=== PATIENT | male | born 2000 ===

== ENCOUNTER 2022-11-11 07:20 | Emergency (ER) | payer BC ==
[2022-11-11] MEDS ORDERED: fentaNYL 50 MCG/ML SDV ONE (07:30)
[2022-11-11] MEDS ORDERED: fentaNYL 50 MCG/ML SDV IVPUSH ONE (07:42)
== END 2022-11-11 09:13 | disposition home or self-care (01) ==
LOC: MW.ED 07:20
DX: S83.004A Unspecified dislocation of right patella, initial encounter (principal); V00.131A Fall from skateboard, initial encounter; Y93.51 Activity, roller skating (inline) and skateboarding; Y92.512 Supermarket, store or market as the place of occurrence of the external cause; Y99.0 Civilian activity done for income or pay
CPT/HCPCS: 27560; 73560; 96374; 99283; J3010

== ENCOUNTER 2022-11-18 17:00 | Emergency (ER) | payer BC | END 2022-11-18 17:41 | disposition left against medical advice (07) | LOC: MW.ED 17:00 | DX: Z53.21 Procedure and treatment not carried out due to patient leaving prior to being seen by health care provider (principal) ==